=== PATIENT | female | born 1970 | race Caucasian/White ===

== ENCOUNTER 2019-12-30 12:27 | Day surgery (SDC) | payer OTHER ==
[2019-12-23 15:26] VITALS: BMI 18.0
[2019-12-30] MEDS ORDERED: ROPIVACAINE HCL 0.5% 30ML VIAL ONE (14:20)
[2019-12-30] MEDS ORDERED: MIDAZOLAM HCL 2 MG/2 ML SINGLE DOSE VIAL ONE (14:20)
[2019-12-30] MEDS ORDERED: BUPIVACAINE HCL/PF 2.5 MG/ML - 30 ML VIAL IJ ONE (14:54)
[2019-12-30] MEDS ORDERED: KETOROLAC TROMETHAMINE 30 MG/1 ML VIAL ONE (15:14)
[2019-12-30] MEDS ORDERED: DEXAMETHASONE SOD PHOSPHATE 4 MG/1 ML VIAL ONE (15:14)
[2019-12-30] MEDS ORDERED: ONDANSETRON 4 MG/2 ML VIAL ONE (15:14)
[2019-12-30] MEDS ORDERED: BUPIVACAINE HCL/PF 0.25% (2.5MG/ML) 10 ML VIAL IJ ONE ×2 (15:34→16:30)
[2019-12-30] MEDS ORDERED: ONDANSETRON 4 MG/2 ML VIAL IVPUSH PRN (17:04)
[2019-12-30] MEDS ORDERED: oxyCODONE HCL 5 MG TABLET PO PRN ×2 (17:04)
[2019-12-30] MEDS ORDERED: PROMETHAZINE HCL 25 MG/1 ML VIAL IVPUSH PRN (17:04)
[2019-12-30] MEDS ORDERED: oxyCODONE HCL 5 MG TABLET ONE (17:45)
[2019-12-30] MEDS ORDERED: ACETAMINOPHEN 1000 MG/100 ML VIAL (NON FORMULARY) IVPB ONE (17:45)
[2019-12-30] MEDS ORDERED: KETOROLAC TROMETHAMINE 30 MG/1 ML VIAL IVPUSH ONE (17:46)
[2019-12-30 18:45] VITALS: BP 119/64; PULSE 86; TEMP 97.9
--- NOTE | 2019-12-30 18:47 | OP ---
DATE OF OPERATION: 12/30/2019 PREOPERATIVE DIAGNOSIS: Right ulna shaft malunion/nonunion. POSTOPERATIVE DIAGNOSIS: Right ulna shaft malunion/nonunion. OPERATIVE PROCEDURE: Repair right ulnar shaft malunion/nonunion with internal fixation and bone grafting. SURGEON: Manda Colon MD. FINISHING AREA SUPERVISOR: THAI Limon. ANESTHESIA: General anesthesia. COMPLICATIONS: None. ESTIMATED BLOOD LOSS: Minimal. INDICATION FOR PROCEDURE: The patient is a 49-year-old female with the above findings, indicated for operative treatment. Risks, benefits, and alternatives were discussed with her at length. Proper informed consent was obtained. Of note, in the holding area, the patient did complain about a little bit of paresthesias and numbness in the radial sensory nerve distribution and examination showed slight diminished fixation here. This is not an area of the patient's clinical injury. DESCRIPTION OF PROCEDURE: After proper identification of the patient and correct operative site, patient was brought to the operating room and placed supine on the operating room table, all bony prominences well padded. General anesthesia was given. Right upper extremity was prepped and draped in the usual sterile fashion. Well-padded tourniquet was placed with a sterile prep. Examination under anesthesia showed near full supination but almost absent pronation of the forearm. Deformity was noted. Right upper extremity was prepped and draped in the usual sterile fashion. Well-padded tourniquet was placed with a sterile prep. Esmarch bandage to exsanguinate the right upper extremity. Tourniquet inflated to 250 mmHg. Longitudinal incision was made for the subcutaneous port of the ulna. This was taken sharply through skin with blunt and sharp dissection to subcutaneous tissue, going through the interval between the ECU and FCU tendons and muscles. blunt dissection was to carefully protect the ulnar sensory nerve. Subperiosteal elevation was performed, and the fracture site was identified with abundant callus formation but persistent lack of full union and significant deformity. Callus was removed and so the [place] bone was exposed. Fracture site was debrided, and the fracture was then reduced and held with a clamp. At this point, rotation of the forearm was confirmed to be adequate. A plate was placed on the flat volar ulnar surface of the ulnar shaft and secured proximally and distally with locking and nonlocking screws. Of note, I decided to complete the only 2 screw holes distally, as the length of the longer plate I believe had risks that outweighed the benefits, as her bone had very good purchase, I felt that this fixation was adequate. Blunt fixation was completed, radiographs were taken confirming anatomic reduction of fracture with proper placement and size of all hardware. The forearm was again taken through range of motion and full unimpeded range of motion with forearm pronation, supination and wrist flexion, extension were achieved. Wound was irrigated and bone graft was performed with debrided callus and the wound was repaired in layers using 4-0 Vicryl and 4-0 Monocryl as well as Steri-Strips and sterile dressing and a wrist splint. Patient was reversed from anesthesia and brought to recovery in room in stable condition. She tolerated the procedure well. Leonardo Hernandez, the preschool teacher assistant, was integral throughout the procedure. He was necessary to assist in performing reduction and holding reduction along with the clamp while fixation was placed. Procedure could not have been performed without a skilled operative preschool teacher assistant. MANDA COLON M.D. [id number]
== END 2019-12-30 18:45 | disposition home or self-care (01) ==
LOC: FASU 12:27
PROVIDERS: ATTEND Orthopaedic Surgery Hand Surgery
PROC: 0PUK07Z Supplement Right Ulna with Autologous Tissue Substitute, Open Approach (ICD-10-PCS; 2019-12-30)
PROC: 0PSK04Z Reposition Right Ulna with Internal Fixation Device, Open Approach (ICD-10-PCS; principal; 2019-12-30 15:20)
DX: S52.232A Displaced oblique fracture of shaft of left ulna, initial encounter for closed fracture (principal); X58.XXXA Exposure to other specified factors, initial encounter; Y93.9 Activity, unspecified; Y92.9 Unspecified place or not applicable
CPT/HCPCS: 25405; C1713; 73110-TC-RT-FY; 94760